=== PATIENT | female | born 1955 | race Caucasian/White ===

== ENCOUNTER 2017-08-18 09:58 | Outpatient (CLI) | payer OTHER ==
[~2017-08-18 09:58] MED LIST: GEMF600T5 PO; IBUP-2213 PO; LEVO0.087 PO; OMEP20EC6 PO
== END 2017-08-18 11:10 | disposition home or self-care (01) ==
LOC: MRD 09:58 → EDSTATUS 08-21 13:06
PROVIDERS: ATTEND Surgery
DX: Z01.818 Encounter for other preprocedural examination (principal); K42.9 Umbilical hernia without obstruction or gangrene
CPT/HCPCS: 71010; 93005